=== PATIENT | female | born 1930 | race Hispanic/Latino ===

== ENCOUNTER 2016-12-14 08:19 | Observation (INO) | payer MEDICARE, OTHER ==
[2016-12-14 08:22] VITALS: BMI 35.2
--- NOTE | 2016-12-14 08:28 | ED PDOC ---
HPI: General Adult Time Seen by Provider: 12/14/16 08:24 Chief Complaint (Provider): chest pain History Per: Patient History/Exam Limitations: no limitations Additional Complaint(s): 86yo female w/ Hx coronary stents 5 years ago brought in by EMS for complaint of chest heaviness for several days. States yesterday she went food shopping and was short of breath by the end of experience. States she woke up with left shoulder, left arm pain. Patient took an aspirin yesterday. No pain when taking deep breaths. PMD: [facility] Cardiology: [facility] Past Medical History Reviewed: Historical Data, Nursing Documentation, Vital Signs Vital Signs: Last Vital Signs Temp 98 F 12/14/16 08:22 Pulse 66 12/14/16 08:22 Resp 20 12/14/16 08:22 BP 121/52 L 12/14/16 08:22 Pulse Ox 98 12/14/16 08:33 - Medical History PMH: Arthritis, CAD, HTN, Hypercholesterolemia Denies: HIV, Chronic Kidney Disease - Surgical History Surgical History: Coronary Stent (x3) Other surgeries: rotator cuff repair - Family History Family History: States: Unknown Family Hx - Social History Drugs: Denies - Home Medications Home Medications: Ambulatory Orders Medication Instructions Recorded [id number] Ethyl Esters 1 GM 1 gm PO BID #0 sgl 10/21/15 [Lovaza] Valsartan [Diovan] 160 mg PO DAILY #0 tab 10/21/15 hydroCHLOROthiazide [Microzide] 12.5 mg PO DAILY #0 cap 10/21/15 Aspirin [Ecotrin] 81 mg PO DAILY 11/21/15 Calcium Carbonate/Vitamin D3 1 tab PO DAILY 11/21/15 [Calcium 600-Vit D3 200 Tablet] Fenofibrate,Micronized [Lofibra] 134 mg PO HS 11/21/15 Folic Acid 1 mg PO DAILY 11/21/15 Krill Oil 1 cap PO DAILY 11/21/15 Magnesium Oxide [Mag-Ox] 1 tab PO DAILY 11/21/15 Metoprolol Succinate [Toprol XL] 25 mg PO HS 11/21/15 Multivitamin [Multi-Vitamin Daily] 1 tab PO DAILY 11/21/15 Ranitidine HCl [Zantac] 150 mg PO BID 11/21/15 Red Yeast Rice 1 cap PO DAILY 11/21/15 Thiamine [Vitamin B1 Tab] 100 mg PO DAILY 11/21/15 Ubidecarenone [Coenzyme Q10] 1 cap PO DAILY 11/21/15 amLODIPine [Norvasc] 10 mg PO DAILY 11/21/15 Ciprofloxacin [Cipro] 500 mg PO BID #0 tab 11/22/15 - Allergies Allergies/Adverse Reactions: Allergies Allergy/AdvReac Type Severity Reaction Status Date / Time clopidogrel [From Plavix] Allergy SHORTNESS Verified 12/14/16 08:29 OF BREATH Review of Systems ROS Statement: Except As Marked, All Systems Reviewed And Found Negative Cardiovascular: Positive for: Chest Pain Respiratory: Positive for: Shortness of Breath Musculoskeletal: Positive for: Arm Pain Physical Exam - Reviewed Nursing Documentation Reviewed: Yes Vital Signs Reviewed: Yes - Physical Exam Appears: Positive for: Well, Non-toxic, No Acute Distress Head Exam: Positive for: ATRAUMATIC, NORMAL INSPECTION, NORMOCEPHALIC Skin: Positive for: Warm, Dry Eye Exam: Positive for: EOMI, PERRL Cardiovascular/Chest: Positive for: Regular Rate, Rhythm Respiratory: Positive for: Normal Breath Sounds. Negative for: Rales, Rhonchi, Wheezing Gastrointestinal/Abdominal: Positive for: Normal Exam, Soft. Negative for: Tenderness Extremity: Positive for: Normal ROM Neurologic/Psych: Positive for: Alert, Oriented - Laboratory Results Result Diagrams: 12/14/16 09:10 12/14/16 09:10 - ECG O2 Sat by Pulse Oximetry: 98 (RA) Pulse Ox Interpretation: Normal Medical Decision Making Medical Decision Makin Impression chest pain Plan: EKG CXR Labs aspirin 325mg reassess Disposition - Clinical Impression Clinical Impression: Chest pain - Patient ED Disposition Is Patient to be Admitted: Yes - Disposition Disposition Time: 10:01 Condition: FAIR - Pt Status Changed To: Hospital Disposition Of: Observation - POA Present On Arrival: None Additional Comments - Additional Comments Additional Comments: Scribe Attestation Documented by Satya Zhang acting as a scribe for Kvng Ivory MD. Provider Attestation All medical record entries made by the Scribe were at my direction and personally dictated by me. I have reviewed the chart and agree that the record accurately reflects my personal performance of the history, physical exam, medical decision making, and the department course for this patient. I have also personally directed, reviewed, and agree with the discharge instructions and disposition
[2016-12-14 09:28] LABS: BASO % 0.5 % (0.0-2.0); EOS # 0.1 K/uL (0.0-0.7); EOS % 1.6 % (0.0-4.0); HEMATOCRIT 37.9 % (34.0-47.0); LYMPH # 1.4 K/uL (1.0-4.3); LYMPH % 16.1 % (20.0-40.0); MEAN CELL VOLUME 95.6 fl (81.0-99.0); MEAN CORPUSCULAR HEMOGLOBIN 32.4 pg (27.0-31.0); MEAN CORPUSCULAR HGB CONC 33.9 g/dL (33.0-37.0); MEAN PLATELET VOLUME 9.8 fl (7.2-11.7); MONO # 0.7 K/uL (0.0-0.8); MONO % 7.7 % (0.0-10.0); NEUT # 6.6 K/uL (1.8-7.0); NEUT % 74.1 % (50.0-75.0); RED CELL DISTRIBUTION WIDTH 13.6 % (11.5-14.5); WHITE BLOOD COUNT 8.9 K/uL (4.8-10.8)
[2016-12-14 09:42] LABS: ALB/GLOB RATIO 1.4 (1.0-2.1); ALKALINE PHOSPHATASE 41 U/L (38-126); ALT/SGPT 36 U/L (9-52); AST/SGOT 23 U/L (14-36); BILIRUBIN,TOTAL 0.4 mg/dl (0.2-1.3); BLOOD UREA NITROGEN 30 mg/dl (7-17); CALCIUM 9.3 mg/dL (8.4-10.2); CARBON DIOXIDE 27 mmol/L (22-30); CHLORIDE 103 mmol/L (98-107); GFR AFRICAN-AMERICAN 52; GLUCOSE,RANDOM 98 mg/dL (65-105); POTASSIUM 4.3 MMOL/L (3.6-5.0); SODIUM 140 mmol/l (132-148); TOTAL PROTEIN 7.5 G/DL (6.3-8.2)
--- NOTE | 2016-12-14 13:55 | CP.PCM.CON ---
History of Present Illness - History of Present Illness History of Present Illness: Full Note Dictated. Atypical chest pain ( doubt Angina) Stable CAD (S/P Cor stenting) A Fib (chr) HTN/ Obesity CA Breast in remission Pt to be monitored in the hospital Serial Troponin levels to be followed Past Patient History - Infectious Disease Hx of Infectious Diseases: None - Tetanus Immunizations Tetanus Immunization: Unknown - Past Medical History & Family History Past Medical History?: Yes - Past Social History Drugs: Denies - CARDIAC Hx Hypercholesterolemia: Yes Hx Hypertension: Yes - PULMONARY Hx Respiratory Disorders: No - NEUROLOGICAL Hx Neurological Disorder: No - HEENT Hx HEENT Problems: No - RENAL Hx Chronic Kidney Disease: No - ENDOCRINE/METABOLIC Hx Endocrine Disorders: No - HEMATOLOGICAL/ONCOLOGICAL Hx Human Immunodeficiency Virus (HIV): No - INTEGUMENTARY Hx Dermatological Problems: No - MUSCULOSKELETAL/RHEUMATOLOGICAL Hx Arthritis: Yes - GASTROINTESTINAL Hx Gastrointestinal Disorders: No - GENITOURINARY/GYNECOLOGICAL Hx Genitourinary Disorders: Yes Hx Urinary Tract Infection: Yes - PSYCHIATRIC Hx Substance Use: No - SURGICAL HISTORY Hx Coronary Stent: Yes (x3) - ANESTHESIA Hx Anesthesia: Yes Hx Anesthesia Reactions: No Hx Malignant Hyperthermia: No Meds Allergies/Adverse Reactions: Allergies Allergy/AdvReac Type Severity Reaction Status Date / Time clopidogrel [From Plavix] Allergy SHORTNESS Verified 12/14/16 08:29 OF BREATH Results - Vital Signs Recent Vital Signs: Last Vital Signs Temp 98 F 12/14/16 08:22 Pulse 66 12/14/16 08:22 Resp 20 12/14/16 08:22 BP 121/52 L 12/14/16 08:22 Pulse Ox 98 12/14/16 10:01 - Labs Result Diagrams: 12/14/16 09:10 12/14/16 09:10
--- NOTE | 2016-12-14 14:10 | CP.PCM.HP ---
History of Present Illness - History of Present Illness History of Present Illness: Patient 86 y/o female presented in ER with c/o of CP with irradiation to the lt upper limb. The CP occurred on exertion. Patient with hx of A Fib and CAD. Present on Admission - Present on Admission Any Indicators Present on Admission: No Review of Systems - Constitutional Constitutional: As Per HPI - EENT Eyes: As Per HPI - Cardiovascular Cardiovascular: Chest Pain, Chest Pain with Activity - Respiratory Respiratory: As Per HPI - Gastrointestinal Gastrointestinal: As Per HPI - Musculoskeletal Musculoskeletal: As Per HPI - Integumentary Integumentary: As Per HPI - Neurological Neurological: As Per HPI - Psychiatric Psychiatric: As Per HPI Past Patient History - Infectious Disease Hx of Infectious Diseases: None - Tetanus Immunizations Tetanus Immunization: Unknown - Past Medical History & Family History Past Medical History?: Yes - Past Social History Drugs: Denies - CARDIAC Hx Hypercholesterolemia: Yes Hx Hypertension: Yes - PULMONARY Hx Respiratory Disorders: No - NEUROLOGICAL Hx Neurological Disorder: No - HEENT Hx HEENT Problems: No - RENAL Hx Chronic Kidney Disease: No - ENDOCRINE/METABOLIC Hx Endocrine Disorders: No - HEMATOLOGICAL/ONCOLOGICAL Hx Human Immunodeficiency Virus (HIV): No - INTEGUMENTARY Hx Dermatological Problems: No - MUSCULOSKELETAL/RHEUMATOLOGICAL Hx Arthritis: Yes - GASTROINTESTINAL Hx Gastrointestinal Disorders: No - GENITOURINARY/GYNECOLOGICAL Hx Genitourinary Disorders: Yes Hx Urinary Tract Infection: Yes - PSYCHIATRIC Hx Substance Use: No - SURGICAL HISTORY Hx Coronary Stent: Yes (x3) - ANESTHESIA Hx Anesthesia: Yes Hx Anesthesia Reactions: No Hx Malignant Hyperthermia: No Meds Allergies/Adverse Reactions: Allergies Allergy/AdvReac Type Severity Reaction Status Date / Time clopidogrel [From Plavix] Allergy SHORTNESS Verified 12/14/16 08:29 OF BREATH Physical Exam - Constitutional Appears: Non-toxic - Head Exam Head Exam: ATRAUMATIC, NORMAL INSPECTION, NORMOCEPHALIC - Eye Exam Eye Exam: EOMI, Normal appearance, PERRL Pupil Exam: NORMAL ACCOMODATION, PERRL - ENT Exam ENT Exam: Mucous Membranes Moist - Neck Exam Neck exam: Positive for: Normal Inspection - Respiratory Exam Respiratory Exam: Decreased Breath Sounds, Clear to Auscultation Bilateral - Cardiovascular Exam Cardiovascular Exam: Irregular Rhythm, +S1, +S2 - GI/Abdominal Exam GI & Abdominal Exam: Normal Bowel Sounds - Rectal Exam Rectal Exam: Deferred - Neurological Exam Neurological exam: Alert, CN II-XII Intact, Oriented x3 Results - Vital Signs Recent Vital Signs: Last Vital Signs Temp 98 F 12/14/16 08:22 Pulse 66 12/14/16 08:22 Resp 20 12/14/16 08:22 BP 121/52 L 12/14/16 08:22 Pulse Ox 98 12/14/16 10:01 - Labs Result Diagrams: 12/14/16 09:10 12/14/16 09:10 Assessment & Plan (1) Atrial fibrillation Status: Chronic (2) Chest pain Status: Acute (3) Coronary artery disease Status: Chronic - Assessment and Plan (Free Text) Plan: As per orders.
[2016-12-14] MEDS ORDERED: Patient's Own Med (Ubidecarenone [Coenzyme Q-10] 200 mg) PO SCH (14:15)
[2016-12-14] MEDS ORDERED: RED YEAST RICE PO SCH (14:15)
[2016-12-14] MEDS ORDERED: MAGNESIUM OXIDE 250 MG PO SCH (14:15)
[2016-12-14] MEDS ORDERED: BIOTIN PO SCH (14:15)
--- NOTE | 2016-12-14 14:40 | CON ---
DATE: 12/14/2016 She is hospitalized under Dr. Bunch's care. HISTORY OF PRESENT ILLNESS: This 86-year-old female who had required coronary stenting for coronary artery disease in 03/2012, has developed atrial fibrillation last year and has been on a beta celeste for rate control and chronically anticoagulated. The patient also had significant pedal edema and h as been taking a diuretic as well. She has a history of breast malignancy and there has been no recu rrence. She has never been a smoker and has never suffered a myocardial infarction. The patient now comes into the hospital complaining of a vague sense of chest discomfort off and on, quite unconnect ed to any physical activity. There is no history of palpitations or sudden shortness of breath or pe rspiration, nausea or vomiting. The patient at this juncture is quite free of chest discomfort. She does not have any nitroglycerin and has not taken one. PHYSICAL EXAMINATION: GENERAL: Shows an elderly, anxious lady, comfortable at this point; alert, awake, coherent. VITAL SIGNS: Afebrile, able to lie virtually flat in bed and breathe comfortably at 14-16 breaths pe r minute. Has a heart rate of 68 beats per minute regular, and a blood pressure of 136/84 mmHg. NECK: Her jugular venous pressure was not elevated. EXTREMITIES: There was no edema of lower extremity. The pedal pulses are well felt. There were no carotid bruits. Thyroid did not show any enlargement. HEART: The apex was not palpable. The first and second heart sounds were normal. There was no murm ur or gallop. LUNGS: There were no rales. ABDOMEN: Soft. Liver and spleen were not palpable. Her electrocardiogram showed atrial fibrillation at moderate heart rate with no Q-waves suggestive of an old infarction. LABORATORY DATA: Showed a hemoglobin and a hematocrit of 12.9 g and 37.9% respectively. Her WBC cou nt and platelet counts were within normal limits. Her BUN and creatinine were 30 and 1.2 mg%. Her t roponin levels at admission were within normal limits. IMPRESSION: At this time is chest pain, atypical in nature, in a patient with known coronary artery disease, status post coronary stenting in 03/2012, with atrial fibrillation, no evidence of overt con gestive cardiac failure, with status post surgery for breast malignancy. PLAN: The patient will have a followup troponin drawn. If it is within normal limits, the patient m ay be allowed to return home. In the meantime, she appears chest pain free and hemodynamically stabl e at this juncture. Mu Dixon MD cc: 23 TT: 12/14/2016 14:40:20 Confirmation # [id number] Dictation # [id number] mn
--- NOTE | 2016-12-14 15:36 | RAD ---
HISTORY: Palpitations, chest pain COMPARISON: 11/21/2015. TECHNIQUE: Chest PA and lateral FINDINGS: LUNGS: Hyperinflation, manifestations of COPD. No active pulmonary disease. PLEURA: No significant pleural effusion identified. No pneumothorax apparent. CARDIOVASCULAR: No radiographic findings to suggest acute or significant cardiovascular disease. OSSEOUS STRUCTURES: No significant abnormalities. VISUALIZED UPPER ABDOMEN: Normal. OTHER FINDINGS: None. IMPRESSION: No active disease. No significant interval change compared to the prior examination(s).
--- NOTE | 2016-12-14 16:04 | CARD ---
APPROVED REPORT EKG Measurement Heart [id number] <Conclusion> Atrial fibrillation Abnormal ECG
[2016-12-14 17:43] LABS: THYROID STIMULATING HORMONE 1.92 mIU/ML (0.46-4.68)
[2016-12-14] MEDS: Lactobacillus Acidophilus 500 MU Cap PO SCH (19:12)
[2016-12-14] MEDS: Multivitamin With Minerals Tab PO SCH (19:14)
[2016-12-14] MEDS: Calcium-Vit D 500 mg-200 Units Tab UD PO SCH (19:14)
[2016-12-15 04:50] VITALS: RESP 18; O2SAT 96
--- NOTE | 2016-12-15 09:41 | CP.PCM.PN ---
Subjective - Date & Time of Evaluation Date of Evaluation: 12/15/16 Time of Evaluation: 09:15 - Subjective Subjective: Has been symptom free over last 24 hrs Telemetry shoes A Fib with well controlled HR BP 128/70 mm Hg No rales, no gallop Three sets of Troponins were normal No evidence of ACS May go home on present Rx Objective - Vital Signs/Intake and Output Vital Signs (last 24 hours): Temp Pulse Resp BP Pulse Ox 97.8 F 71 18 125/71 96 12/15/16 07:49 12/15/16 07:49 12/15/16 07:49 12/15/16 07:49 12/15/16 07:49 - Medications Medications: Current Medications Amlodipine Besylate (Norvasc) 10 mg PO DAILY [facility] Last Admin: 12/14/16 17:56 Dose: 10 mg Ascorbic Acid (Vitamin C 500 Mg Tab) 500 mg PO DAILY [facility] Last Admin: 12/14/16 19:15 Dose: 500 mg Calcium/Vitamin D (Oyster Shell Calcium/Vitamin D 500 Mg-200 Iu) 1 tab PO DAILY [facility] Last Admin: 12/14/16 19:14 Dose: 1 tab Folic Acid (Folic Acid) 1 mg PO DAILY [facility] Last Admin: 12/14/16 19:13 Dose: 1 mg Furosemide (Lasix) 40 mg PO DAILY [facility] Last Admin: 12/14/16 19:13 Dose: 40 mg Home Med (Acetaminophen [Tylenol Extra Strength]) 1,000 mg PO DAILY [facility] Home Med (Magnesium Oxide [Magnesium]) 250 mg PO DAILY [facility] Hydrochlorothiazide (Microzide) 12.5 mg PO DAILY [facility] Last Admin: 12/14/16 19:14 Dose: 12.5 mg Lactobacillus Acidophilus (Bacid Acidophilus) 1 cap PO DAILY [facility] Last Admin: 12/14/16 19:12 Dose: 1 cap Metoprolol Tartrate (Lopressor) 25 mg PO QAM ANUEL Metoprolol Tartrate (Lopressor) 50 mg PO HS [facility] Last Admin: 12/14/16 21:29 Dose: 50 mg Multivitamins/Minerals (Therapeutic-M Tab) 1 tab PO DAILY [facility] Last Admin: 12/14/16 19:14 Dose: 1 tab Prednisone (Prednisone Tab) 5 mg PO DAILY [facility] Last Admin: 12/14/16 17:54 Dose: 5 mg Rivaroxaban (Xarelto) 20 mg PO QPM [facility] PRN Reason: Protocol Last Admin: 12/14/16 19:15 Dose: 20 mg Thiamine HCl (Vitamin B1 Tab) 100 mg PO DAILY [facility] Last Admin: 12/14/16 19:15 Dose: 100 mg Valsartan (Diovan) 160 mg PO DAILY [facility] Last Admin: 12/14/16 19:12 Dose: 160 mg
[2016-12-15] MEDS: Lactobacillus Acidophilus 500 MU Cap PO SCH (09:42)
[2016-12-15] MEDS: Calcium-Vit D 500 mg-200 Units Tab UD PO SCH (09:44)
[2016-12-15] MEDS: Multivitamin With Minerals Tab PO SCH (09:45)
--- NOTE | 2016-12-15 11:50 | CP.PCM.PN ---
Subjective - Date & Time of Evaluation Date of Evaluation: 12/15/16 Time of Evaluation: 11:50 - Subjective Subjective: Comfortable, no CP ,no SOB, no palpitations Objective - Vital Signs/Intake and Output Vital Signs (last 24 hours): Temp Pulse Resp BP Pulse Ox 97.8 F 71 18 125/71 96 12/15/16 09:00 12/15/16 09:44 12/15/16 09:00 12/15/16 09:44 12/15/16 09:00 - Medications Medications: Current Medications Amlodipine Besylate (Norvasc) 10 mg PO DAILY [facility] Last Admin: 12/15/16 09:44 Dose: 10 mg Ascorbic Acid (Vitamin C 500 Mg Tab) 500 mg PO DAILY [facility] Last Admin: 12/15/16 09:45 Dose: 500 mg Calcium/Vitamin D (Oyster Shell Calcium/Vitamin D 500 Mg-200 Iu) 1 tab PO DAILY [facility] Last Admin: 12/15/16 09:44 Dose: 1 tab Folic Acid (Folic Acid) 1 mg PO DAILY [facility] Last Admin: 12/15/16 09:42 Dose: 1 mg Furosemide (Lasix) 40 mg PO DAILY [facility] Last Admin: 12/15/16 09:42 Dose: 40 mg Home Med (Acetaminophen [Tylenol Extra Strength]) 1,000 mg PO DAILY [facility] Home Med (Magnesium Oxide [Magnesium]) 250 mg PO DAILY [facility] Hydrochlorothiazide (Microzide) 12.5 mg PO DAILY [facility] Last Admin: 12/15/16 09:44 Dose: 12.5 mg Lactobacillus Acidophilus (Bacid Acidophilus) 1 cap PO DAILY [facility] Last Admin: 12/15/16 09:42 Dose: 1 cap Metoprolol Tartrate (Lopressor) 25 mg PO QAM [facility] Last Admin: 12/15/16 09:43 Dose: 25 mg Metoprolol Tartrate (Lopressor) 50 mg PO HS [facility] Last Admin: 12/14/16 21:29 Dose: 50 mg Multivitamins/Minerals (Therapeutic-M Tab) 1 tab PO DAILY [facility] Last Admin: 12/15/16 09:45 Dose: 1 tab Prednisone (Prednisone Tab) 5 mg PO DAILY [facility] Last Admin: 12/15/16 09:45 Dose: 5 mg Rivaroxaban (Xarelto) 20 mg PO QPM [facility] PRN Reason: Protocol Last Admin: 12/14/16 19:15 Dose: 20 mg Thiamine HCl (Vitamin B1 Tab) 100 mg PO DAILY [facility] Last Admin: 12/15/16 09:45 Dose: 100 mg Valsartan (Diovan) 160 mg PO DAILY [facility] Last Admin: 12/15/16 09:42 Dose: 160 mg - Constitutional Appears: Well - Head Exam Head Exam: ATRAUMATIC, NORMAL INSPECTION, NORMOCEPHALIC - Eye Exam Eye Exam: EOMI, Normal appearance, PERRL Pupil Exam: NORMAL ACCOMODATION - ENT Exam ENT Exam: Mucous Membranes Moist - Neck Exam Neck Exam: Full ROM - Respiratory Exam Respiratory Exam: Clear to Ausculation Bilateral - Cardiovascular Exam Cardiovascular Exam: Irregular Rhythm, +S1, +S2 - GI/Abdominal Exam GI & Abdominal Exam: Soft, Normal Bowel Sounds - Neurological Exam Neurological Exam: Alert, Awake, CN II-XII Intact, Normal Gait, Oriented x3 - Skin Skin Exam: Normal Color Assessment and Plan (1) Atrial fibrillation Status: Chronic (2) Chest pain Status: Resolved (3) Coronary artery disease Status: Chronic - Assessment and Plan (Free Text) Plan: DC home
[2016-12-15 12:04] VITALS: BP 118/67; PULSE 82; TEMP 97.7
== END 2016-12-15 13:38 | disposition home or self-care (01) ==
LOC: H.ER 08:19 → H.ERHOLD 09:58 → H.TEL 18:14
PROVIDERS: ADMIT Internal Medicine; ATTEND Internal Medicine
DX: R07.89 Other chest pain (principal); I48.2 Chronic atrial fibrillation; I10 Essential (primary) hypertension; I25.10 Atherosclerotic heart disease of native coronary artery without angina pectoris; Z95.5 Presence of coronary angioplasty implant and graft; E78.00 Pure hypercholesterolemia, unspecified; E66.9 Obesity, unspecified; Z79.01 Long term (current) use of anticoagulants; Z85.3 Personal history of malignant neoplasm of breast
CPT/HCPCS: 71020; 80053; 84443; 84484; 85025; 93005; 99285; G0378

== ENCOUNTER 2017-02-21 09:01 | Emergency (ER) | payer MEDICARE, OTHER ==
[2017-02-21 09:01] VITALS: BMI 35.2
[2017-02-21 09:22] VITALS: O2SAT 98
--- NOTE | 2017-02-21 09:43 | ED PDOC ---
HPI: General Adult Time Seen by Provider: 02/21/17 09:23 Chief Complaint (Nursing): Weakness/Neurological Deficit Chief Complaint (Provider): Tingling to right side of head History Per: Patient History/Exam Limitations: no limitations Onset/Duration Of Symptoms: Days Have you had recent travel within the past 21 days to any of the following countries: [place], [place], [place] or [place]?: No Additional History Per: Patient Additional Complaint(s): The patient is a 86yo female, presents to the ED for evaluation of tingling to her left side of head, present for the past week. Patient additionally reports swollen ankles. She denies any shortness of breath, headaches, weakness. Patient offers no additional medical complaints. Past Medical History Reviewed: Historical Data, Nursing Documentation, Vital Signs Vital Signs: Last Vital Signs Temp Pulse Resp BP Pulse Ox 98 02/21/17 10:44 - Medical History PMH: Arthritis, Atrial Fibrillation, CAD (with stents), HTN, Hypercholesterolemia, Chronic Kidney Disease Denies: HIV - Surgical History Surgical History: Coronary Stent (x3) - Family History Family History: States: Unknown Family Hx - Home Medications Home Medications: Ambulatory Orders Medication Instructions Recorded Calcium Carbonate/Vitamin D3 1 tab PO DAILY 11/21/15 [Calcium 600-Vit D3 200 Tablet] Folic Acid 1 mg PO DAILY 11/21/15 Multivitamin [Multi-Vitamin Daily] 1 tab PO DAILY 11/21/15 Ranitidine HCl [Zantac] 150 mg PO BID 11/21/15 Red Yeast Rice 1 cap PO DAILY 11/21/15 Thiamine [Vitamin B1 Tab] 100 mg PO DAILY 11/21/15 Acetaminophen [Tylenol Extra 1,000 mg PO DAILY 12/14/16 Strength] Ascorbic Acid [Vitamin C 500 mg 500 mg PO DAILY 12/14/16 Tab] Biotin [Meribin] 1 cap PO DAILY 12/14/16 Furosemide [Lasix] 40 mg PO DAILY 12/14/16 Lactobacillus Combination No.8 1 cap PO DAILY 12/14/16 [Adult Probiotic] Magnesium Oxide [Magnesium] 250 mg PO DAILY 12/14/16 Metoprolol Tartrate [Lopressor] 25 mg PO QAM 12/14/16 Metoprolol Tartrate [Lopressor] 50 mg PO HS 12/14/16 Rivaroxaban [Xarelto] 20 mg PO QPM 12/14/16 Ubidecarenone [Coenzyme Q-10] 200 mg PO DAILY 12/14/16 Valsartan [Diovan] 160 mg PO DAILY 12/14/16 amLODIPine [Norvasc] 10 mg PO DAILY 12/14/16 hydroCHLOROthiazide [Microzide] 12.5 mg PO DAILY 12/14/16 predniSONE [predniSONE Tab] 5 mg PO DAILY 12/14/16 Furosemide [Lasix] 20 mg PO DAILY #3 tablet 02/21/17 - Allergies Allergies/Adverse Reactions: Allergies Allergy/AdvReac Type Severity Reaction Status Date / Time clopidogrel [From Plavix] Allergy SHORTNESS Verified 02/21/17 09:19 OF BREATH Review of Systems ROS Statement: Except As Marked, All Systems Reviewed And Found Negative Respiratory: Negative for: Shortness of Breath Neurological: Positive for: Other (tingling left head). Negative for: Weakness , Headache Physical Exam - Reviewed Nursing Documentation Reviewed: Yes Vital Signs Reviewed: Yes - Physical Exam Appears: Positive for: Well, Non-toxic, No Acute Distress Head Exam: Positive for: ATRAUMATIC, NORMAL INSPECTION, NORMOCEPHALIC Skin: Positive for: Normal Color, Warm, DRY Eye Exam: Positive for: Normal appearance Neck: Positive for: Normal, Supple Cardiovascular/Chest: Positive for: Regular Rate, Rhythm Respiratory: Positive for: Normal Breath Sounds. Negative for: Respiratory Distress Extremity: Positive for: Normal ROM Neurologic/Psych: Positive for: Alert, Oriented. Negative for: Motor/Sensory Deficits - Laboratory Results Result Diagrams: 02/21/17 09:30 02/21/17 09:30 - ECG O2 Sat by Pulse Oximetry: 98 (RA) Pulse Ox Interpretation: Normal Medical Decision Making Medical Decision Making: Time: 929 Impression: Left sided head tingling Plan: -- CT Head -- Labs -- CXR Reassess Time: 1040 CT Head Impression: No evidence of acute intracranial hemorrhage, intracranial collection, mass effect or midline shift. [id number] atrophy and mild chronic microvascular white matter ischemic disease. Scribe Attestation: Documented by Tanisha Alexandra acting as a scribe for Kvng Ivory MD. Provider Attestation: All medical record entries made by the Scribe were at my direction and personally dictated by me. I have reviewed the chart and agree that the record accurately reflects my personal performance of the history, physical exam, medical decision making, and the department course for this patient. I have also personally directed, reviewed, and agree with the discharge instructions and disposition. Disposition - Clinical Impression Clinical Impression: Edema - Patient ED Disposition Is Patient to be Admitted: No Counseled Patient/Family Regarding: Studies Performed, Diagnosis, Need For Followup, Rx Given - Disposition Referrals: Mu Dixon MD [Staff Provider] - Jame Bunch MD [Staff Provider] - Disposition: Routine/Home Disposition Time: 10:50 Condition: FAIR Prescriptions: Furosemide [Lasix] 20 mg PO DAILY #3 tablet Instructions: Leg Edema (ED) Forms: [employer] ([place])
[2017-02-21 09:50] LABS: BASO # 0.1 K/uL (0.0-0.2); BASO % 0.8 % (0.0-2.0); EOS # 0.1 K/uL (0.0-0.7); EOS % 1.1 % (0.0-4.0); HEMOGLOBIN 13.4 g/dL (12.0-16.0); LYMPH # 1.6 K/uL (1.0-4.3); LYMPH % 15.3 % (20.0-40.0); MEAN CELL VOLUME 95.9 fl (81.0-99.0); MEAN CORPUSCULAR HEMOGLOBIN 32.2 pg (27.0-31.0); MEAN CORPUSCULAR HGB CONC 33.6 g/dL (33.0-37.0); MEAN PLATELET VOLUME 9.8 fl (7.2-11.7); MONO # 0.7 K/uL (0.0-0.8); MONO % 6.9 % (0.0-10.0); NEUT # 8.1 K/uL (1.8-7.0); NEUT % 75.9 % (50.0-75.0); RBC 4.16 Mil/uL (3.80-5.20); RED CELL DISTRIBUTION WIDTH 13.9 % (11.5-14.5); WHITE BLOOD COUNT 10.7 K/uL (4.8-10.8)
[2017-02-21 09:57] LABS: ALB/GLOB RATIO 1.4 (1.0-2.1); ALBUMIN 4.3 g/dL (3.5-5.0); CALCIUM 9.7 mg/dL (8.4-10.2)
--- NOTE | 2017-02-21 10:33 | CT ---
PROCEDURE: CT HEAD WITHOUT CONTRAST. HISTORY: r/o bleed COMPARISON: Comparison is made to the previous study dated 04/22/2012 TECHNIQUE: Axial computed tomography images were obtained through the head/brain without intravenous contrast. Radiation dose: Total exam DLP = 876.96 mGy-cm. This CT exam was performed using one or more of the following dose reduction techniques: Automated exposure control, adjustment of the mA and/or kV according to patient size, and/or use of iterative reconstruction technique. FINDINGS: HEMORRHAGE: No intracranial hemorrhage. BRAIN: No mass effect or edema. [id number] atrophy is noted. Mild white matter changes are also noted suggestive but nonspecific for chronic microvascular ischemic disease. Vascular calcifications seen around the [place] and in the distal internal carotid and vertebral arteries. Siphon VENTRICLES: Unremarkable. No hydrocephalus. CALVARIUM: Unremarkable. PARANASAL SINUSES: Unremarkable as visualized. No significant inflammatory changes. MASTOID AIR CELLS: Unremarkable as visualized. No inflammatory changes. OTHER FINDINGS: None. IMPRESSION: No evidence of acute intracranial hemorrhage intracranial collection mass effect or midline shift. [id number] atrophy and mild chronic microvascular white matter ischemic disease.
--- NOTE | 2017-02-21 11:46 | RAD ---
HISTORY: Ankle swellingt COMPARISON: 12/14/2016 TECHNIQUE: Chest PA and lateral FINDINGS: LUNGS: Hyperinflation, manifestations of COPD. No active pulmonary disease. PLEURA: No significant pleural effusion identified. No pneumothorax apparent. CARDIOVASCULAR: Cardiomegaly. No evidence of acute, significant cardiovascular disease. OSSEOUS STRUCTURES: No significant abnormalities. VISUALIZED UPPER ABDOMEN: Normal. OTHER FINDINGS: None. IMPRESSION: No active disease. No significant interval change compared to the prior examination(s).
--- NOTE | 2017-02-22 08:09 | CARD ---
APPROVED REPORT EKG Measurement Heart [id number] <Conclusion> Atrial fibrillation with a competing junctional pacemaker Abnormal ECG
== END 2017-02-21 11:09 | disposition home or self-care (01) ==
LOC: H.ER 09:01
DX: R53.1 Weakness (principal); R20.2 Paresthesia of skin; E78.00 Pure hypercholesterolemia, unspecified; I12.9 Hypertensive chronic kidney disease with stage 1 through stage 4 chronic kidney disease, or unspecified chronic kidney disease; I25.10 Atherosclerotic heart disease of native coronary artery without angina pectoris; I48.91 Unspecified atrial fibrillation; Z79.01 Long term (current) use of anticoagulants; Z95.0 Presence of cardiac pacemaker; Z95.5 Presence of coronary angioplasty implant and graft

== ENCOUNTER 2017-08-16 10:44 | Emergency (ER) | payer MEDICARE ==
[2017-08-16 10:44] VITALS: BMI 35.2
[2017-08-16 10:48] VITALS: BP 135/78; PULSE 98; RESP 20; TEMP 97.9; O2SAT 97
--- NOTE | 2017-08-16 11:33 | ED PDOC ---
HPI: General Adult Time Seen by Provider: 08/16/17 11:01 Chief Complaint (Nursing): Flu-like Symptoms Chief Complaint (Provider): Cough History Per: Patient History/Exam Limitations: no limitations Onset/Duration Of Symptoms: Days (yesterday) Current Symptoms Are (Timing): Still Present Additional Complaint(s): Pt. with cough, congestion, runny onse, body aches, weakness. No headaches, dizziness, chest pain, dyspnea, leg pain, numbness, tingles. No abd pain. Started yesterday. Past Medical History Reviewed: Nursing Documentation, Vital Signs Vital Signs: Last Vital Signs Temp 97.9 F 08/16/17 10:47 Pulse 98 H 08/16/17 10:47 Resp 20 08/16/17 10:47 BP 135/78 08/16/17 10:47 Pulse Ox 97 08/16/17 14:05 - Medical History PMH: Arthritis, Atrial Fibrillation, CAD (with stents), HTN, Hypercholesterolemia, Chronic Kidney Disease Denies: HIV - Surgical History Surgical History: Coronary Stent (x3) - Family History Family History: States: Unknown Family Hx - Living Arrangements Living Arrangements: With Family - Social History Current smoker - smoking cessation education provided: No Alcohol: None Drugs: Denies - Home Medications Home Medications: Ambulatory Orders Medication Instructions Recorded Calcium Carbonate/Vitamin D3 1 tab PO DAILY 11/21/15 [Calcium 600-Vit D3 200 Tablet] Folic Acid 1 mg PO DAILY 11/21/15 Multivitamin [Multi-Vitamin Daily] 1 tab PO DAILY 11/21/15 Ranitidine HCl [Zantac] 150 mg PO BID 11/21/15 Red Yeast Rice 1 cap PO DAILY 11/21/15 Thiamine [Vitamin B1 Tab] 100 mg PO DAILY 11/21/15 Acetaminophen [Tylenol Extra 1,000 mg PO DAILY 12/14/16 Strength] Ascorbic Acid [Vitamin C 500 mg 500 mg PO DAILY 12/14/16 Tab] Biotin [Meribin] 1 cap PO DAILY 12/14/16 Furosemide [Lasix] 40 mg PO DAILY 12/14/16 Lactobacillus Combination No.8 1 cap PO DAILY 12/14/16 [Adult Probiotic] Magnesium Oxide [Magnesium] 250 mg PO DAILY 12/14/16 Metoprolol Tartrate [Lopressor] 25 mg PO QAM 12/14/16 Metoprolol Tartrate [Lopressor] 50 mg PO HS 12/14/16 Rivaroxaban [Xarelto] 20 mg PO QPM 12/14/16 Ubidecarenone [Coenzyme Q-10] 200 mg PO DAILY 12/14/16 Valsartan [Diovan] 160 mg PO DAILY 12/14/16 amLODIPine [Norvasc] 10 mg PO DAILY 12/14/16 hydroCHLOROthiazide [Microzide] 12.5 mg PO DAILY 12/14/16 predniSONE [predniSONE Tab] 5 mg PO DAILY 12/14/16 Furosemide [Lasix] 20 mg PO DAILY #3 tablet 02/21/17 Azithromycin [Zithromax] 250 mg PO DAILY 5 Days tab 08/16/17 Benzonatate [Tessalon Perles] 100 mg PO BID PRN 5 Days sgl 08/16/17 - Allergies Allergies/Adverse Reactions: Allergies Allergy/AdvReac Type Severity Reaction Status Date / Time clopidogrel [From Plavix] Allergy SHORTNESS Verified 02/21/17 09:19 OF BREATH Review of Systems ROS Statement: Except As Marked, All Systems Reviewed And Found Negative Constitutional: Positive for: Weakness ENT: Positive for: Nose Discharge, Nose Congestion, Throat Pain Respiratory: Positive for: Cough. Negative for: Shortness of Breath Gastrointestinal: Negative for: Nausea, Vomiting, Abdominal Pain Neurological: Positive for: Weakness. Negative for: Confusion, Dizziness Physical Exam - Reviewed Nursing Documentation Reviewed: Yes Vital Signs Reviewed: Yes - Physical Exam Appears: Positive for: Non-toxic, No Acute Distress Head Exam: Positive for: ATRAUMATIC, NORMAL INSPECTION, NORMOCEPHALIC Skin: Positive for: Normal Color, Warm, DRY Eye Exam: Positive for: EOMI, Normal appearance, PERRL ENT: Positive for: Nasal Congestion. Negative for: Tonsillar Exudate Neck: Positive for: Normal, Painless ROM, Supple Cardiovascular/Chest: Positive for: Regular Rate, Rhythm Respiratory: Positive for: CNT, Normal Breath Sounds Gastrointestinal/Abdominal: Positive for: Normal Exam, Bowel Sounds, Soft. Negative for: Tenderness Back: Positive for: Normal Inspection. Negative for: L CVA Tenderness, R CVA Tenderness Extremity: Positive for: Normal ROM. 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 Negative for: Motor/Sensory Deficits - Laboratory Results Result Diagrams: 08/16/17 13:55 08/16/17 13:10 Interpretation Of Abn Labs: wbc c12; elevated bun - ECG ECG: Positive for: Interpreted By Me, Viewed By Me ECG Rhythm: Positive for: Atrial Fibrillation (rate controlled), Nonspecific Changes O2 Sat by Pulse Oximetry: 97 Pulse Ox Interpretation: Normal - Radiology X-Ray: Read By Radiologist X-Ray Interpretation: No Acute Disease - Progress ED Course And Treament: 1543: Stable. AAOx3. Feels better. Tolerated PO. No dyspnea. Flu neg. Wants to go home. Fu with pcp. Will rx zpak considering underlying dz. Spoke with Dr. Bunch. Made aware of all findings and presentation. Wants dc and fu with him. Agrees with dc plan. Disposition - Clinical Impression Clinical Impression: URI (upper respiratory infection) - Patient ED Disposition Is Patient to be Admitted: No Counseled Patient/Family Regarding: Studies Performed, Diagnosis, Need For Followup, Rx Given - Disposition Referrals: Jame Bunch MD [Family Provider] - 08/17/17 Disposition: Routine/Home Disposition Time: 14:47 Condition: STABLE Additional Instructions: Return if not better in 3 days. Prescriptions: Azithromycin [Zithromax] 250 mg PO DAILY 5 Days tab Benzonatate [Tessalon Perles] 100 mg PO BID PRN 5 Days sgl PRN Reason: Cough Instructions: Upper Respiratory Infection (ED)
[2017-08-16] MEDS: Sodium Chloride 0.9% 500 ML IV STA (11:56)
--- NOTE | 2017-08-16 12:43 | RAD ---
HISTORY: cough COMPARISON: 02/21/2017. FINDINGS: LUNGS: The lungs are well inflated and clear. PLEURA: No significant pleural effusion identified, no pneumothorax apparent. CARDIOVASCULAR: There is persistent moderate cardiomegaly. Atherosclerotic aortic arch calcifications are present. OSSEOUS STRUCTURES: No significant abnormalities. VISUALIZED UPPER ABDOMEN: Normal. OTHER FINDINGS: None. IMPRESSION: No active pulmonary disease.
[2017-08-16 13:31] LABS: ALB/GLOB RATIO 1.3 (1.0-2.1); ALBUMIN 4.2 g/dL (3.5-5.0); CALCIUM 9.5 mg/dL (8.4-10.2); GFR AFRICAN-AMERICAN 52; GFR NON-AFRICAN AMERICAN 43
[2017-08-16 13:43] LABS: ALT/SGPT 37 U/L (9-52); AST/SGOT 35 U/L (14-36); BLOOD UREA NITROGEN 25 mg/dl (7-17)
[2017-08-16 13:53] LABS: INR 1.1 (0.9-1.2); PARTIAL THROMBOPLASTIN TIME 16.6 Seconds (25.6-37.1); PROTHROMBIN TIME 12.7 Seconds (9.8-13.1)
[2017-08-16 14:04] LABS: BASO % 0.3 % (0.0-2.0); EOS # 0.1 K/uL (0.0-0.7); EOS % 0.5 % (0.0-4.0); HEMOGLOBIN 12.7 g/dL (12.0-16.0); LYMPH # 0.5 K/uL (1.0-4.3); LYMPH % 3.8 % (20.0-40.0); MEAN CELL VOLUME 96.8 fl (81.0-99.0); MEAN CORPUSCULAR HEMOGLOBIN 32.6 pg (27.0-31.0); MEAN CORPUSCULAR HGB CONC 33.7 g/dL (33.0-37.0); MEAN PLATELET VOLUME 9.4 fl (7.2-11.7); MONO # 0.8 K/uL (0.0-0.8); MONO % 6.9 % (0.0-10.0); NEUT # 10.7 K/uL (1.8-7.0); NEUT % 88.5 % (50.0-75.0); NRBC % 0.1 % (0.0-0.0); PLATELET COUNT 166 K/uL (130-400); RBC 3.89 Mil/uL (3.80-5.20); RED CELL DISTRIBUTION WIDTH 14.7 % (11.5-14.5)
[2017-08-16 14:38] LABS: BANDS 1 % (0-2); LYMPHOCYTE 4 % (20-50); MONOCYTE 6 % (0-10); NEUTROPHIL 89 % (42-75); TOTAL CELLS COUNTED 100
[2017-08-16 14:39] LABS: ANISOCYTOSIS SLIGHT; LARGE PLATELETS PRESENT; PLATELET ESTIMATE NORMAL (NORMAL)
--- NOTE | 2017-08-18 09:52 | CARD ---
APPROVED REPORT EKG Measurement Heart [id number] <Conclusion> Atrial fibrillation Nonspecific T wave abnormality Abnormal ECG
== END 2017-08-16 16:10 | disposition home or self-care (01) ==
LOC: H.ER 10:44
DX: J06.9 Acute upper respiratory infection, unspecified (principal); I25.10 Atherosclerotic heart disease of native coronary artery without angina pectoris; E78.00 Pure hypercholesterolemia, unspecified; I12.9 Hypertensive chronic kidney disease with stage 1 through stage 4 chronic kidney disease, or unspecified chronic kidney disease
CPT/HCPCS: 71045; 80053; 84484; 85025; 85610; 85730; 87804; 93005; 96360; 96361; 99284; J7040

== ENCOUNTER 2018-03-27 09:37 | Observation (INO) | payer MEDICARE, SELFPAY ==
[2018-03-27 09:37] VITALS: BMI 36.5
--- NOTE | 2018-03-27 10:49 | ED PDOC ---
HPI: SOB/CHF/COPD Time Seen by Provider: 03/27/18 09:58 Chief Complaint (Nursing): Shortness Of Breath Chief Complaint (Provider): Shortness of breath History Per: Patient History/Exam Limitations: no limitations Onset/Duration Of Symptoms: Persistent (2 months) Current Symptoms Are (Timing): Still Present Additional History Per: Patient Additional Complaint(s): 87yo female, comes to ER complaining of worsening shortness of breath x 2 months. She reports the shortness of breath worsens with exertion; also reports paroxsymal nocturnal dyspnea, orthopnea, and a dry cough. She denies any fever, chills, chest pain and new/worsening leg swelling. No other complaints. PMD: Dr. Bunch Past Medical History Reviewed: Historical Data, Nursing Documentation, Vital Signs Vital Signs: Last Vital Signs Temp 98.5 F 03/27/18 15:10 Pulse 85 03/27/18 15:10 Resp 16 03/27/18 15:10 BP 173/85 H 03/27/18 15:10 Pulse Ox 100 03/27/18 15:10 - Medical History PMH: Arthritis, Atrial Fibrillation, CAD (with stents), HTN, Hypercholesterolemia, Chronic Kidney Disease Denies: HIV - Surgical History Surgical History: Cholecystectomy, Coronary Stent (x3) Denies: Pacemaker - Family History Family History: States: No Known Family Hx - Living Arrangements Living Arrangements: With Family - Home Medications Home Medications: Ambulatory Orders Medication Instructions Recorded Calcium Carbonate/Vitamin D3 1 tab PO DAILY 11/21/15 [Calcium 600-Vit D3 200 Tablet] Multivitamin [Multi-Vitamin Daily] 1 tab PO DAILY 11/21/15 Acetaminophen [Tylenol Extra 500 mg PO DAILY PRN 12/14/16 Strength] Biotin [Meribin] 1 cap PO DAILY 12/14/16 Furosemide [Lasix] 40 mg PO DAILY 12/14/16 Lactobacillus Combination No.8 1 cap PO DAILY 12/14/16 [Adult Probiotic] Metoprolol Tartrate [Lopressor] 25 mg PO HS 12/14/16 Metoprolol Tartrate [Lopressor] 50 mg PO QAM 12/14/16 Rivaroxaban [Xarelto] 15 mg PO QPM 12/14/16 Ubidecarenone [Coenzyme Q-10] 200 mg PO DAILY 12/14/16 Valsartan [Diovan] 160 mg PO DAILY 12/14/16 predniSONE [predniSONE Tab] 5 mg PO DAILY 12/14/16 Alendronate [Fosamax] 70 mg PO TUE 10/06/17 Aspirin [Ecotrin] 81 mg PO DAILY 10/06/17 Celecoxib [Celebrex] 200 mg PO DAILY 10/06/17 Omeprazole 40 mg PO DAILY 10/06/17 - Allergies Allergies/Adverse Reactions: Allergies Allergy/AdvReac Type Severity Reaction Status Date / Time clopidogrel [From Plavix] Allergy Severe RASH/SHORTNESS Verified 03/27/18 10:03 OF BREATH Review of Systems ROS Statement: Except As Marked, All Systems Reviewed And Found Negative Constitutional: Negative for: Fever, Chills Cardiovascular: Positive for: Orthopnea, Paroxysmal Noc. Dyspnea. Negative for : Chest Pain Respiratory: Positive for: Shortness of Breath. Negative for: Cough, Sputum Physical Exam - Reviewed Nursing Documentation Reviewed: Yes Vital Signs Reviewed: Yes - Physical Exam Appears: Positive for: Non-toxic, Uncomfortable Head Exam: Positive for: ATRAUMATIC, NORMAL INSPECTION, NORMOCEPHALIC Skin: Positive for: Normal Color, Warm, DRY Eye Exam: Positive for: EOMI, Normal appearance, PERRL Neck: Positive for: Normal, Painless ROM Cardiovascular/Chest: Positive for: Chest Non Tender, Irregularly Irregular Respiratory: Positive for: Normal Breath Sounds, Other (speaking full sentences) . Negative for: Wheezing, Respiratory Distress Gastrointestinal/Abdominal: Positive for: Normal Exam, Soft Back: Positive for: Normal Inspection Extremity: Positive for: Normal ROM, Pedal Edema (2+ pitting edema bilateral lower extremities) Neurologic/Psych: Positive for: Alert, Oriented. Negative for: Motor/Sensory Deficits - Laboratory Results Result Diagrams: 03/27/18 10:39 03/27/18 10:39 - ECG O2 Sat by Pulse Oximetry: 94 (O2 via NC) Pulse Ox Interpretation: Abnormal Medical Decision Making Medical Decision Making: Impression: Shortness of breath Plan: * Labs * Chest x-ray * Urinalysis * US Doppler bilateral lower extremities Time: 1152 US Doppler bilateral FINDINGS: COMMON FEMORAL VEIN: Right CFV: Unremarkable. Left CFV: Unremarkable. SUPERFICIAL FEMORAL VEIN: Right SFV: Unremarkable. Left SFV: Unremarkable. POPLITEAL VEIN: Right Popliteal: Unremarkable. Left Popliteal: Unremarkable. POSTERIOR TIBIAL VEIN: Right PTV: Unremarkable. Left PTV: Unremarkable. OTHER FINDINGS: None. IMPRESSION: No evidence of deep venous thrombosis. Time: 1410 Labs reviewed, patient noted to have low Hgb compared to prior. Patient with borderline hypokalemia as well. Guiac stool test is negative. Time: [address] Bunch, patient's PMD who recommends Lasix 40mg IV and K-Dur 40meq PO. Patient to be admitted to [facility] under Dr. Bunch's service and Dr. Carr to be consulted for cardiology. Scribe Attestation: Documented by Tanisha Alexandra, acting as a scribe for Eileen Delatorre MD. Provider Scribe Attestation: All medical record entries made by the Scribe were at my direction and personally dictated by me. I have reviewed the chart and agree that the record accurately reflects my personal performance of the history, physical exam, medical decision making, and the department course for this patient. I have also personally directed, reviewed, and agree with the discharge instructions and disposition. Disposition - Disposition Disposition Time: 15:15 Forms: [employer] (Greenlandic)
[2018-03-27 11:15] LABS: BASO % 0.3 % (0.0-2.0); EOS # 0.1 K/uL (0.0-0.7); EOS % 1.7 % (0.0-4.0); HEMOGLOBIN 9.8 g/dL (12.0-16.0); LYMPH % 12.8 % (20.0-40.0); MEAN CELL VOLUME 83.3 fl (81.0-99.0); MEAN CORPUSCULAR HEMOGLOBIN 27.5 pg (27.0-31.0); MEAN CORPUSCULAR HGB CONC 33.1 g/dL (33.0-37.0); MEAN PLATELET VOLUME 8.3 fl (7.2-11.7); MONO # 0.6 K/uL (0.0-0.8); MONO % 7.9 % (0.0-10.0); NEUT # 6.2 K/uL (1.8-7.0); NEUT % 77.3 % (50.0-75.0); NRBC % 0.1 % (0.0-0.0); RBC 3.55 Mil/uL (3.80-5.20); RED CELL DISTRIBUTION WIDTH 16.1 % (11.5-14.5)
[2018-03-27 11:19] LABS: URINE BILIRUBIN NEGATIVE (NEGATIVE); URINE BLOOD NEGATIVE (NEGATIVE); URINE CLARITY SLIGHTY-CLOUDY (Clear); URINE COLOR YELLOW (YELLOW); URINE GLUCOSE (UA) NEG (Normal); URINE LEUKOCYTE ESTERASE TRACE Leu/uL (Negative); URINE PROTEIN NEGATIVE (NEGATIVE); URINE UROBILINOGEN 0.2-1.0 mg/dL (0.2-1.0)
[2018-03-27 11:20] LABS: SQUAMOUS EPITHIAL 1 /hpf (0-5)
[2018-03-27 11:25] LABS: INR 1.7; PROTHROMBIN TIME 18.5 Seconds (9.8-13.1)
[2018-03-27 11:28] LABS: PARTIAL THROMBOPLASTIN TIME 33.5 Seconds (25.6-37.1)
--- NOTE | 2018-03-27 11:37 | US ---
Date of service: 03/27/2018 PROCEDURE: Bilateral lower extremity venous duplex Doppler. HISTORY: BLE swelling COMPARISON: None available. TECHNIQUE: Bilateral common femoral, superficial femoral, popliteal and posterior tibial veins were evaluated. Flow was assessed with color Doppler, compressibility, assessment of phasic flow and augmentation response. FINDINGS: COMMON FEMORAL VEIN: Right CFV: Unremarkable. Left CFV: Unremarkable. SUPERFICIAL FEMORAL VEIN: Right SFV: Unremarkable. Left SFV: Unremarkable. POPLITEAL VEIN: Right Popliteal: Unremarkable. Left Popliteal: Unremarkable. POSTERIOR TIBIAL VEIN: Right PTV: Unremarkable. Left PTV: Unremarkable. OTHER FINDINGS: None. IMPRESSION: No evidence of deep venous thrombosis.
[2018-03-27 11:50] LABS: ALB/GLOB RATIO 1.2 (1.0-2.1); ALBUMIN 3.9 g/dL (3.5-5.0); ALT/SGPT 24 U/L (9-52); AST/SGOT 28 U/L (14-36); BLOOD UREA NITROGEN 15 mg/dl (7-17); CALCIUM 9.5 mg/dL (8.4-10.2); GFR NON-AFRICAN AMERICAN 60
[2018-03-27 12:02] LABS: B-TYPE NATRIURETIC PEPTIDE 474 pg/ml (0-900)
--- NOTE | 2018-03-27 12:51 | RAD ---
HISTORY: SOB COMPARISON: Chest x-ray performed 02/21/17 TECHNIQUE: Chest, one view. FINDINGS: LUNGS: Mild pulmonary venous congestion. No focal consolidation. Please note that chest x-ray has limited sensitivity for the detection of pulmonary masses. PLEURA: No significant pleural effusion identified. No definite pneumothorax . CARDIOVASCULAR: Cardiomegaly. Atherosclerotic calcifications an ectatic aorta. OSSEOUS STRUCTURES: No acute osseous abnormality identified. VISUALIZED UPPER ABDOMEN: Unremarkable. OTHER FINDINGS: None. IMPRESSION: Cardiomegaly. Ectatic aorta containing atherosclerotic calcifications. Mild pulmonary venous congestion.
[2018-03-27] MEDS ORDERED: Potassium Chloride 20 mEq ER Tab PO STA (15:17)
[2018-03-27] MEDS ORDERED: Potassium Chloride 20 mEq ER Tab PO ONE (15:56)
[2018-03-27] MEDS ORDERED: Multivitamin With Minerals Tab PO SCH (18:00)
--- NOTE | 2018-03-27 20:03 | CARD ---
APPROVED REPORT Date of service: 03/27/2018 EKG Measurement Heart [id number] <Conclusion> Atrial fibrillation with rapid ventricular response Nonspecific ST and T wave abnormality Abnormal ECG
[2018-03-27] MEDS: Mupirocin 2% Oint 1GM UD TOP SCH (21:33)
--- NOTE | 2018-03-28 08:24 | CP.PCM.HP ---
History of Present Illness - History of Present Illness History of Present Illness: 87yo female, presented in ER with c/o of worsening shortness of breath. She c/o the shortness of breath worsens with exertion with paroxsymal nocturnal dyspnea , orthopnea, and a dry cough. She denies any fever, chills, chest pain and new/ worsening leg swelling. No other complaints. Present on Admission - Present on Admission Any Indicators Present on Admission: No Review of Systems - Constitutional Constitutional: Weakness - EENT Eyes: As Per HPI - Cardiovascular Cardiovascular: Dyspnea, Dyspnea on Exertion, Edema, Paroxysmal Nocturnal Dyspnea, Pedal Edema - Respiratory Respiratory: Dyspnea, Dyspnea on Exertion - Gastrointestinal Gastrointestinal: As Per HPI - Genitourinary Genitourinary: As Per HPI - Musculoskeletal Musculoskeletal: Arthralgias - Integumentary Integumentary: As Per HPI - Neurological Neurological: As Per HPI - Psychiatric Psychiatric: As Per HPI Past Patient History - Infectious Disease Hx of Infectious Diseases: None - Tetanus Immunizations Tetanus Immunization: Unknown - Past Medical History & Family History Past Medical History?: Yes - Past Social History Smoking Status: Never Smoked - CARDIAC Hx Cardiac Disorders: Yes Hx Atrial Fibrillation: Yes Hx Hypercholesterolemia: Yes Hx Hypertension: Yes Hx Pacemaker: No - PULMONARY Hx Respiratory Disorders: No - NEUROLOGICAL Hx Neurological Disorder: No - HEENT Hx HEENT Problems: No - RENAL Hx Chronic Kidney Disease: Yes - ENDOCRINE/METABOLIC Hx Endocrine Disorders: No - HEMATOLOGICAL/ONCOLOGICAL Hx Blood Disorders: Yes Hx AIDS: No Hx Anemia: Yes Hx Human Immunodeficiency Virus (HIV): No - INTEGUMENTARY Hx Dermatological Problems: No - MUSCULOSKELETAL/RHEUMATOLOGICAL Hx Musculoskeletal Disorders: Yes Hx Arthritis: Yes Hx Falls: No - GASTROINTESTINAL Hx Gastrointestinal Disorders: Yes Other/Comment: "stomach infection" - GENITOURINARY/GYNECOLOGICAL Hx Genitourinary Disorders: No - PSYCHIATRIC Hx Psychophysiologic Disorder: No Hx Emotional Abuse: No Hx Physical Abuse: No Hx Substance Use: No - SURGICAL HISTORY Hx Surgeries: Yes Hx Cholecystectomy: Yes Hx Coronary Stent: Yes (x3) - ANESTHESIA Hx Anesthesia: Yes Hx Anesthesia Reactions: No Hx Malignant Hyperthermia: No Has any member of the family had a problem w/ anesthesia?: No Meds Allergies/Adverse Reactions: Allergies Allergy/AdvReac Type Severity Reaction Status Date / Time clopidogrel [From Plavix] Allergy Severe RASH/SHORTNESS Verified 09/10/18 10:03 OF BREATH Physical Exam - Constitutional Appears: Chronically Ill - Head Exam Head Exam: ATRAUMATIC, NORMAL INSPECTION, NORMOCEPHALIC - Eye Exam Eye Exam: Normal appearance - Neck Exam Neck exam: Positive for: Full Rom - Respiratory Exam Respiratory Exam: Rales - Cardiovascular Exam Cardiovascular Exam: REGULAR RHYTHM, +S1, +S2 - GI/Abdominal Exam GI & Abdominal Exam: Normal Bowel Sounds - Extremities Exam Extremities exam: Positive for: pedal edema - Neurological Exam Neurological exam: Alert, CN II-XII Intact, Normal Gait, Oriented x3 - Psychiatric Exam Psychiatric exam: Normal Mood - Skin Skin Exam: Dry Results - Vital Signs Recent Vital Signs: Last Vital Signs Temp 97.6 F 03/28/18 08:00 Pulse 87 03/28/18 08:00 Resp 18 03/28/18 08:00 BP 152/86 H 03/28/18 08:00 Pulse Ox 98 03/28/18 08:00 - Labs Result Diagrams: 03/27/18 10:39 03/27/18 10:39 Labs: Laboratory Results - last 24 hr 03/27/18 03/27/18 03/27/18 10:39 10:39 10:45 WBC 8.0 RBC 3.55 L Hgb 9.8 L D Hct 29.6 L MCV 83.3 D MCH 27.5 MCHC 33.1 RDW 16.1 H Plt Count 239 MPV 8.3 Neut % (Auto) 77.3 H Lymph % (Auto) 12.8 L [place] % (Auto) 7.9 Eos % (Auto) 1.7 Baso % (Auto) 0.3 Neut # (Auto) 6.2 Lymph # (Auto) 1.0 [place] # (Auto) 0.6 Eos # (Auto) 0.1 Baso # (Auto) 0.0 PT INR APTT D-Dimer, Quantitative Sodium 142 Potassium 3.6 Chloride 104 Carbon Dioxide 32 H Anion Gap 10 BUN 15 Creatinine 0.9 Est GFR ( Amer) > 60 Est GFR (Non-Af Amer) 60 Random Glucose 117 H Calcium 9.5 Total Bilirubin 0.5 AST 28 ALT 24 Alkaline Phosphatase 41 Troponin I < 0.0120 NT-Pro-B Natriuret Pep 474 Total Protein 7.1 Albumin 3.9 Globulin 3.2 Albumin/Globulin Ratio 1.2 Urine Color Yellow Urine Clarity Slighty-cloudy Urine pH 7.0 Ur Specific [place] 1.009 Urine Protein Negative Urine Glucose (UA) Neg Urine Ketones Negative Urine Blood Negative Urine Nitrate Negative Urine Bilirubin Negative Urine Urobilinogen 0.2-1.0 Ur Leukocyte Esterase Trace Urine RBC (Auto) 2 Urine Microscopic WBC 12 H Ur Squamous Epith Cells 1 Stool Occult Blood 03/27/18 03/27/18 11:23 13:40 WBC RBC Hgb Hct MCV MCH MCHC RDW Plt Count MPV Neut % (Auto) Lymph % (Auto) [place] % (Auto) Eos % (Auto) Baso % (Auto) Neut # (Auto) Lymph # (Auto) [place] # (Auto) Eos # (Auto) Baso # (Auto) PT 18.5 H INR 1.7 APTT 33.5 D-Dimer, Quantitative 217 Sodium Potassium Chloride Carbon Dioxide Anion Gap BUN Creatinine Est GFR ( Amer) Est GFR (Non-Af Amer) Random Glucose Calcium Total Bilirubin AST ALT Alkaline Phosphatase Troponin I NT-Pro-B Natriuret Pep Total Protein Albumin Globulin Albumin/Globulin Ratio Urine Color Urine Clarity Urine pH Ur Specific [place] Urine Protein Urine Glucose (UA) Urine Ketones Urine Blood Urine Nitrate Urine Bilirubin Urine Urobilinogen Ur Leukocyte Esterase Urine RBC (Auto) Urine Microscopic WBC Ur Squamous Epith Cells Stool Occult Blood Negative Assessment & Plan (1) CHF (congestive heart failure) Status: Acute (2) Coronary artery disease Status: Chronic (3) Hypercholesterolemia Status: Chronic (4) Hypertension Status: Chronic - Assessment and Plan (Free Text) Plan: As per orders
[2018-03-28] MEDS ORDERED: Patient's Own Med (Ubidecarenone [Coenzyme Q-10] 200 mg) PO SCH (09:00)
[2018-03-28] MEDS ORDERED: BIOTIN 10 MG PO SCH (09:00)
[2018-03-28] MEDS: Calcium-Vit D 500 mg-200 Units Tab UD PO SCH (09:25)
[2018-03-28] MEDS: Omega-3-Acid Ethyl Esters 1 GM Cap PO SCH ×2 (09:25→17:35)
[2018-03-28] MEDS: Pantoprazole 20 mg EC Tab PO SCH (09:26)
[2018-03-28] MEDS: Lactobacillus Acidophilus 500 MU Cap PO SCH (09:35)
[2018-03-28] MEDS: Ciprofloxacin 200mg/100ml D5W 100 ML IVPB SCH ×2 (10:31→21:28)
[2018-03-28] MEDS: Multivitamin With Minerals Tab PO SCH (10:32)
--- NOTE | 2018-03-28 10:49 | CP.PCM.CON ---
History of Present Illness - History of Present Illness History of Present Illness: CARDIOLOGY CONSULT NOTE FOR DR. MITZY Nuñez D.O. PGY-1 CC: SOB x 2 months HPI: Mrs. Valentine is a 87y/o F with pmhx of CAD s/p mid-RCA stent (03/2012) and cardiac cath (10/10/17), HTN, HLD, Afib on xarelto presents to [facility] with complaints of shortness of breath & palpitations that she has been experiencing for the past 2 months. She had decided to go to ER after she was having difficulty sleeping due to SOB and palpitations. She reports having these symptoms for several months and has been ignoring it. This am, she reports improvement in her symptoms, and was able to sleep overnight. She denies chest pain, palpitations, shortness of breath, headache, nausea, vomiting, diophoresis , constipation, diarrhea. PMH: CAD, HTN, HLD, Afib All: Plavix- diffuse rash PSH: Denies SH: Hx of 3 pack/day cigarette use x <1 year Meds: See SEP PMD: Dr. Bunch Cardio: Dr. Carr Echo 03/27/18: Cardiac Cath 10/10/17: fractional flow reserve of LAD waws 50% to 55%, proximal left anterior descending artery fractional flow reserve was done, which was physiologically nonsignificant 0.82. Mild nonobstructive coronary artery disease , normal left ventricular ejection fraction, mildly elevated end-diastolic pressure. Review of Systems - Review of Systems Review of Systems: as per HPI Past Patient History - Infectious Disease Hx of Infectious Diseases: None - Tetanus Immunizations Tetanus Immunization: Unknown - Past Medical History & Family History Past Medical History?: Yes - Past Social History Smoking Status: Never Smoked - CARDIAC Hx Cardiac Disorders: Yes Hx Atrial Fibrillation: Yes Hx Hypercholesterolemia: Yes Hx Hypertension: Yes Hx Pacemaker: No - PULMONARY Hx Respiratory Disorders: No - NEUROLOGICAL Hx Neurological Disorder: No - HEENT Hx HEENT Problems: No - RENAL Hx Chronic Kidney Disease: Yes - ENDOCRINE/METABOLIC Hx Endocrine Disorders: No - HEMATOLOGICAL/ONCOLOGICAL Hx Blood Disorders: Yes Hx AIDS: No Hx Anemia: Yes Hx Human Immunodeficiency Virus (HIV): No - INTEGUMENTARY Hx Dermatological Problems: No - MUSCULOSKELETAL/RHEUMATOLOGICAL Hx Musculoskeletal Disorders: Yes Hx Arthritis: Yes Hx Falls: No - GASTROINTESTINAL Hx Gastrointestinal Disorders: Yes Other/Comment: "stomach infection" - GENITOURINARY/GYNECOLOGICAL Hx Genitourinary Disorders: No - PSYCHIATRIC Hx Psychophysiologic Disorder: No Hx Emotional Abuse: No Hx Physical Abuse: No Hx Substance Use: No - SURGICAL HISTORY Hx Surgeries: Yes Hx Cholecystectomy: Yes Hx Coronary Stent: Yes (x3) - ANESTHESIA Hx Anesthesia: Yes Hx Anesthesia Reactions: No Hx Malignant Hyperthermia: No Has any member of the family had a problem w/ anesthesia?: No Meds Allergies/Adverse Reactions: Allergies Allergy/AdvReac Type Severity Reaction Status Date / Time clopidogrel [From Plavix] Allergy Severe RASH/SHORTNESS Verified 03/27/18 10:03 OF BREATH - Medications Medications: Current Medications Acetaminophen (Tylenol 325mg Tab) 650 mg PO Q4 PRN PRN Reason: Pain, moderate (4-7) Aspirin (Ecotrin) 81 mg PO DAILY [facility] Last Admin: 03/28/18 09:23 Dose: 81 mg Calcium/Vitamin D (Oyster Shell Calcium/Vitamin D 500 Mg-200 Iu) 1 tab PO DAILY [facility] Last Admin: 03/28/18 09:25 Dose: 1 tab Carvedilol (Coreg) 12.5 mg PO BID [facility] Last Admin: 03/28/18 09:21 Dose: 12.5 mg Furosemide (Lasix) 40 mg IV Q12 [facility] Last Admin: 03/28/18 09:34 Dose: 40 mg Home Med (Biotin [Meribin]) 10 mg PO DAILY [facility] Home Med (Ubidecarenone [Coenzyme Q-10]) 200 mg PO DAILY [facility] Ciprofloxacin (Cipro 200mg/100ml D5w) 100 mls @ 100 mls/hr IVPB Q12 [facility] PRN Reason: Protocol Last Admin: 03/28/18 10:31 Dose: 100 mls/hr Lactobacillus Acidophilus (Bacid Acidophilus) 1 cap PO DAILY [facility] Last Admin: 03/28/18 09:35 Dose: 1 cap Losartan Potassium (Cozaar) 50 mg PO DAILY [facility] Last Admin: 03/28/18 09:22 Dose: 50 mg Multivitamins/Minerals (Therapeutic-M Tab) 1 tab PO DAILY [facility] Last Admin: 03/28/18 10:32 Dose: Not Given Mupirocin (Bactroban Ointment) 1 applic TOP BID [facility] Last Admin: 03/28/18 09:42 Dose: 1 applic [id number] Ethyl Esters (Lovaza) 2 gm PO BID [facility] Last Admin: 03/28/18 09:25 Dose: 2 gm Pantoprazole Sodium (Protonix Ec Tab) 20 mg PO DAILY [facility] Last Admin: 03/28/18 09:26 Dose: 20 mg Rivaroxaban (Xarelto) 15 mg PO HS [facility] PRN Reason: Protocol Last Admin: 03/27/18 21:23 Dose: 15 mg Sucralfate (Carafate Tab) 1 gm PO TIDAC [facility] Last Admin: 03/28/18 09:21 Dose: 1 gm Physical Exam - Constitutional Appears: Well, Non-toxic, No Acute Distress - Head Exam Head Exam: ATRAUMATIC, NORMAL INSPECTION - Eye Exam Eye Exam: EOMI, Normal appearance - ENT Exam ENT Exam: Mucous Membranes Moist, Normal Exam - Neck Exam Neck exam: Positive for: Normal Inspection - Respiratory Exam Respiratory Exam: Clear to Auscultation Bilateral, NORMAL BREATHING PATTERN - Cardiovascular Exam Cardiovascular Exam: Irregular Rhythm, +S1, +S2 - GI/Abdominal Exam GI & Abdominal Exam: Normal Bowel Sounds, Soft - Extremities Exam Extremities exam: Positive for: normal capillary refill, normal inspection, pedal edema - Back Exam Back exam: NORMAL INSPECTION - Neurological Exam Neurological exam: Alert, CN II-XII Intact, Oriented x3 - Psychiatric Exam Psychiatric exam: Normal Affect, Normal Mood - Skin Skin Exam: Dry, Intact, Warm Results - Vital Signs Recent Vital Signs: Last Vital Signs Temp 97.6 F 03/28/18 08:00 Pulse 61 03/28/18 09:22 Resp 18 03/28/18 08:00 BP 152/86 H 03/28/18 09:34 Pulse Ox 98 03/28/18 08:00 - Labs Result Diagrams: 03/28/18 12:00 03/28/18 12:00 Labs: Laboratory Results - last 24 hr 03/27/18 03/27/18 03/27/18 10:39 10:39 10:45 WBC 8.0 RBC 3.55 L Hgb 9.8 L D Hct 29.6 L MCV 83.3 D MCH 27.5 MCHC 33.1 RDW 16.1 H Plt Count 239 MPV 8.3 Neut % (Auto) 77.3 H Lymph % (Auto) 12.8 L White % (Auto) 7.9 Eos % (Auto) 1.7 Baso % (Auto) 0.3 Neut # (Auto) 6.2 Lymph # (Auto) 1.0 White # (Auto) 0.6 Eos # (Auto) 0.1 Baso # (Auto) 0.0 PT INR APTT D-Dimer, Quantitative Sodium 142 Potassium 3.6 Chloride 104 Carbon Dioxide 32 H Anion Gap 10 BUN 15 Creatinine 0.9 Est GFR ( Amer) > 60 Est GFR (Non-Af Amer) 60 Random Glucose 117 H Calcium 9.5 Total Bilirubin 0.5 AST 28 ALT 24 Alkaline Phosphatase 41 Troponin I < 0.0120 NT-Pro-B Natriuret Pep 474 Total Protein 7.1 Albumin 3.9 Globulin 3.2 Albumin/Globulin Ratio 1.2 Urine Color Yellow Urine Clarity Slighty-cloudy Urine pH 7.0 Ur Specific [place] 1.009 Urine Protein Negative Urine Glucose (UA) Neg Urine Ketones Negative Urine Blood Negative Urine Nitrate Negative Urine Bilirubin Negative Urine Urobilinogen 0.2-1.0 Ur Leukocyte Esterase Trace Urine RBC (Auto) 2 Urine Microscopic WBC 12 H Ur Squamous Epith Cells 1 Stool Occult Blood 03/27/18 03/27/18 11:23 13:40 WBC RBC Hgb Hct MCV MCH MCHC RDW Plt Count MPV Neut % (Auto) Lymph % (Auto) White % (Auto) Eos % (Auto) Baso % (Auto) Neut # (Auto) Lymph # (Auto) White # (Auto) Eos # (Auto) Baso # (Auto) PT 18.5 H INR 1.7 APTT 33.5 D-Dimer, Quantitative 217 Sodium Potassium Chloride Carbon Dioxide Anion Gap BUN Creatinine Est GFR ( Amer) Est GFR (Non-Af Amer) Random Glucose Calcium Total Bilirubin AST ALT Alkaline Phosphatase Troponin I NT-Pro-B Natriuret Pep Total Protein Albumin Globulin Albumin/Globulin Ratio Urine Color Urine Clarity Urine pH Ur Specific [place] Urine Protein Urine Glucose (UA) Urine Ketones Urine Blood Urine Nitrate Urine Bilirubin Urine Urobilinogen Ur Leukocyte Esterase Urine RBC (Auto) Urine Microscopic WBC Ur Squamous Epith Cells Stool Occult Blood Negative Assessment & Plan - Assessment and Plan (Free Text) Assessment: Mrs. Valentine is a 87y/o F with pmhx of CAD s/p mid-RCA stent (03/2012) and cardiac cath (10/10/17), HTN, HLD, Afib on xarelto admitted for acute on chronic CHF exacerbation Plan: Acute on chronic CHF exacerbation BNP improved from 1110 --> 474 Continue home lasix F/u Echo CAD s/p mid RCA stent HLD Continue aspirin START STATIN? Afib Continue home xarelto HTN continue home losartan continue home carvedilol Case seen, examined and discussed with attending physician, Dr. Carr. Further recs per him.
[2018-03-28] MEDS: Mupirocin 2% Oint 1GM UD TOP SCH (11:48)
[2018-03-28 12:18] LABS: BASO % 0.6 % (0.0-2.0); EOS # 0.2 K/uL (0.0-0.7); EOS % 2.2 % (0.0-4.0); LYMPH # 1.1 K/uL (1.0-4.3); LYMPH % 14.5 % (20.0-40.0); MEAN CELL VOLUME 82.8 fl (81.0-99.0); MEAN CORPUSCULAR HEMOGLOBIN 26.9 pg (27.0-31.0); MEAN CORPUSCULAR HGB CONC 32.5 g/dL (33.0-37.0); MEAN PLATELET VOLUME 7.8 fl (7.2-11.7); MONO # 0.6 K/uL (0.0-0.8); MONO % 8.7 % (0.0-10.0); NEUT # 5.4 K/uL (1.8-7.0); NRBC % 0.2 % (0.0-0.0); RBC 3.71 Mil/uL (3.80-5.20); RED CELL DISTRIBUTION WIDTH 16.5 % (11.5-14.5); WHITE BLOOD COUNT 7.3 K/uL (4.8-10.8)
[2018-03-28 12:31] LABS: BLOOD UREA NITROGEN 15 mg/dl (7-17); CALCIUM 9.3 mg/dL (8.4-10.2); GFR NON-AFRICAN AMERICAN > 60
[2018-03-28] MEDS ORDERED: Potassium Chloride 20 mEq ER Tab PO ONE ×2 (14:44→15:51)
--- NOTE | 2018-03-28 15:55 | CP.PCM.PN ---
Subjective - Date & Time of Evaluation Date of Evaluation: 03/28/18 Time of Evaluation: 16:30 - Subjective Subjective: Still same sob no cp Objective - Vital Signs/Intake and Output Vital Signs (last 24 hours): Temp Pulse Resp BP Pulse Ox 98.3 F 90 20 111/66 98 03/28/18 12:00 03/28/18 12:00 03/28/18 12:00 03/28/18 12:00 03/28/18 12:00 - Medications Medications: Current Medications Acetaminophen (Tylenol 325mg Tab) 650 mg PO Q4 PRN PRN Reason: Pain, moderate (4-7) Aspirin (Ecotrin) 81 mg PO DAILY [facility] Last Admin: 03/28/18 09:23 Dose: 81 mg Calcium/Vitamin D (Oyster Shell Calcium/Vitamin D 500 Mg-200 Iu) 1 tab PO DAILY [facility] Last Admin: 03/28/18 09:25 Dose: 1 tab Carvedilol (Coreg) 12.5 mg PO BID [facility] Last Admin: 03/28/18 09:21 Dose: 12.5 mg Furosemide (Lasix) 40 mg IV Q12 [facility] Last Admin: 03/28/18 09:34 Dose: 40 mg Ciprofloxacin (Cipro 200mg/100ml D5w) 100 mls @ 100 mls/hr IVPB Q12 [facility] PRN Reason: Protocol Last Admin: 03/28/18 10:31 Dose: 100 mls/hr Lactobacillus Acidophilus (Bacid Acidophilus) 1 cap PO DAILY [facility] Last Admin: 03/28/18 09:35 Dose: 1 cap Losartan Potassium (Cozaar) 50 mg PO DAILY [facility] Last Admin: 03/28/18 09:22 Dose: 50 mg Multivitamins/Minerals (Therapeutic-M Tab) 1 tab PO DAILY [facility] Last Admin: 03/28/18 10:32 Dose: Not Given Mupirocin (Bactroban Ointment) 1 applic TOP BID [facility] Last Admin: 03/28/18 09:42 Dose: 1 applic [id number] Ethyl Esters (Lovaza) 2 gm PO BID [facility] Last Admin: 03/28/18 09:25 Dose: 2 gm Pantoprazole Sodium (Protonix Ec Tab) 20 mg PO DAILY [facility] Last Admin: 03/28/18 09:26 Dose: 20 mg Potassium Chloride (Klor-Con 10) 40 meq PO ONCE ONE Stop: 03/28/18 15:52 Rivaroxaban (Xarelto) 15 mg PO HS [facility] PRN Reason: Protocol Last Admin: 03/27/18 21:23 Dose: 15 mg Sucralfate (Carafate Tab) 1 gm PO TIDAC [facility] Last Admin: 03/28/18 13:44 Dose: 1 gm - Labs Labs: 03/28/18 12:00 03/28/18 12:00 PT 18.5 Seconds (9.8-13.1) H 03/27/18 11:23 INR 1.7 03/27/18 11:23 APTT 33.5 Seconds (25.6-37.1) 03/27/18 11:23 - Constitutional Appears: Chronically Ill - Head Exam Head Exam: ATRAUMATIC, NORMAL INSPECTION, NORMOCEPHALIC - ENT Exam ENT Exam: Mucous Membranes Moist - Neck Exam Neck Exam: Full ROM - Respiratory Exam Respiratory Exam: Decreased Breath Sounds - Cardiovascular Exam Cardiovascular Exam: Irregular Rhythm, +S1, +S2 - GI/Abdominal Exam GI & Abdominal Exam: Soft, Normal Bowel Sounds - Extremities Exam Extremities Exam: Pedal Edema - Neurological Exam Neurological Exam: Alert, Awake, CN II-XII Intact, Oriented x3 - Psychiatric Exam Psychiatric exam: Normal Affect - Skin Skin Exam: Normal Color Assessment and Plan (1) CHF (congestive heart failure) Status: Acute (2) Coronary artery disease Status: Chronic (3) Hypercholesterolemia Status: Chronic (4) Hypertension Status: Chronic
--- NOTE | 2018-03-28 16:20 | CARD ---
APPROVED REPORT Date of service: 03/28/2018 EXAM: Two-dimensional and M-mode echocardiogram with Doppler and color Doppler. Other Information Quality : AverageRhythm : NSR Technically limited study due to body habitus. INDICATION Congestive Heart Failure 2D DIMENSIONS IVSd1.18 (0.7-1.1cm)LVDd3.94 (3.9-5.9cm) LVOT Diameter2.02 (1.8-2.4cm)PWd1.41 (0.7-1.1cm) IVSs1.19 (0.8-1.2cm)LVDs2.41 (2.5-4.0cm) FS (%) 38.9 %PWs1.32 (0.8-1.2cm) M-Mode DIMENSIONS Left Atrium (MM)5.59 (2.5-4.0cm)IVSd1.32 (0.7-1.1cm) Aortic Root2.85 (2.2-3.7cm)LVDd4.70 (4.0-5.6cm) Aortic Cusp Exc.1.65 (1.5-2.0cm)PWd1.29 (0.7-1.1cm) IVSs1.65 cmFS (%) 36 % LVDs3.01 (2.0-3.8cm)PWs1.56 cm Aortic Valve AoV Peak Niedlfru532.3cm/sAoV VTI25.7cmAO Peak GR.7mmHg LVOT Peak Kezdtiuf27.4cm/sLVOT VTI17.40cmAO Mean GR.5mmHg Mitral Valve MV E Maxjfdzk60.8cm/sMV DECEL HHKW123hpHD A Rivsjvhm44.4cm/s MV VKX02tqW/A ratio3.6MVA (PHT)4.43cm2 TDI Lateral E' Peak V10.19cm/sMedial E' Peak V11.81cm/sE/Lateral E'8.2 E/Medial E'7.1 Pulmonary Valve PV Peak Ssrkjsqw51.3cm/s LEFT VENTRICLE The left ventricle is normal size. There is mild concentric left ventricular hypertrophy. The left ventricular systolic function is normal. The estimated ejection fraction is 60-65% No regional wall motion abnormalities noted.. The left ventricular diastolic function are unable to be accurately assessed No left ventricle thrombus noted on this study. There is no ventricular septal defect visualized. There is no mass noted in the left ventricle. RIGHT VENTRICLE The right ventricle is normal size. There is normal right ventricular wall thickness. The right ventricular systolic function is normal. ATRIA The left atrium size is moderately dilated The right atrium size is normal. The interatrial septum is intact with no evidence for an atrial septal defect. AORTIC VALVE The aortic valve is normal in structure. No aortic regurgitation is present. There is no aortic valvular stenosis. MITRAL VALVE The mitral valve is normal in structure. There is no mitral valve stenosis. There is trivial mitral valve regurgitation noted. TRICUSPID VALVE The tricuspid valve is normal in structure. There is no tricuspid valve regurgitation noted. PULMONIC VALVE The pulmonary valve is normal in structure. There is no pulmonic valvular regurgitation. GREAT VESSELS The aortic root is normal in size. The ascending aorta is normal in size. The pulmonary artery is normal. The IVC is normal in size and collapses >50% with inspiration. PERICARDIAL EFFUSION There is no pericardial effusion. <Conclusion> Dilated left atrium Mild LVH Normal LV systolic function The estimated ejection fraction is 60-65%
[2018-03-29 06:18] LABS: BLOOD UREA NITROGEN 17 mg/dl (7-17); GFR NON-AFRICAN AMERICAN 53
[2018-03-29] MEDS: Omega-3-Acid Ethyl Esters 1 GM Cap PO SCH (08:35)
[2018-03-29] MEDS: Calcium-Vit D 500 mg-200 Units Tab UD PO SCH (08:35)
[2018-03-29] MEDS: Multivitamin With Minerals Tab PO SCH (08:36)
[2018-03-29] MEDS: Pantoprazole 20 mg EC Tab PO SCH (08:36)
[2018-03-29] MEDS: Lactobacillus Acidophilus 500 MU Cap PO SCH (08:41)
[2018-03-29] MEDS: Ciprofloxacin 200mg/100ml D5W 100 ML IVPB SCH (08:42)
[2018-03-29 12:05] VITALS: BP 135/78; PULSE 87; RESP 20; TEMP 97.9; O2SAT 98
--- NOTE | 2018-03-29 12:37 | CP.PCM.PN ---
Subjective - Date & Time of Evaluation Date of Evaluation: 03/29/18 Time of Evaluation: 20:03 - Subjective Subjective: Patient comfortable CHF compensated with dieresis. Will DC home and f/u with cardiology neela. Objective - Vital Signs/Intake and Output Vital Signs (last 24 hours): Temp Pulse Resp BP Pulse Ox 97.9 F 87 20 135/78 98 03/29/18 12:00 03/29/18 12:00 03/29/18 12:00 03/29/18 12:00 03/29/18 12:00 - Medications Medications: Current Medications Acetaminophen (Tylenol 325mg Tab) 650 mg PO Q4 PRN PRN Reason: Pain, moderate (4-7) Aspirin (Ecotrin) 81 mg PO DAILY [facility] Last Admin: 03/29/18 08:35 Dose: 81 mg Calcium/Vitamin D (Oyster Shell Calcium/Vitamin D 500 Mg-200 Iu) 1 tab PO DAILY [facility] Last Admin: 03/29/18 08:35 Dose: 1 tab Carvedilol (Coreg) 12.5 mg PO BID [facility] Last Admin: 03/29/18 08:37 Dose: 12.5 mg Furosemide (Lasix) 40 mg IV Q12 [facility] Last Admin: 03/29/18 08:37 Dose: 40 mg Ciprofloxacin (Cipro 200mg/100ml D5w) 100 mls @ 100 mls/hr IVPB Q12 [facility] PRN Reason: Protocol Last Admin: 03/29/18 08:42 Dose: 100 mls/hr Lactobacillus Acidophilus (Bacid Acidophilus) 1 cap PO DAILY [facility] Last Admin: 03/29/18 08:41 Dose: 1 cap Losartan Potassium (Cozaar) 50 mg PO DAILY [facility] Last Admin: 03/29/18 08:37 Dose: 50 mg Multivitamins/Minerals (Therapeutic-M Tab) 1 tab PO DAILY [facility] Last Admin: 03/29/18 08:36 Dose: 1 tab Mupirocin (Bactroban Ointment) 1 applic TOP BID [facility] Last Admin: 03/29/18 08:35 Dose: 1 applic [id number] Ethyl Esters (Lovaza) 2 gm PO BID [facility] Last Admin: 03/29/18 08:35 Dose: 2 gm Pantoprazole Sodium (Protonix Ec Tab) 20 mg PO DAILY [facility] Last Admin: 03/29/18 08:36 Dose: 20 mg Rivaroxaban (Xarelto) 15 mg PO HS [facility] PRN Reason: Protocol Last Admin: 03/28/18 21:27 Dose: 15 mg Sucralfate (Carafate Tab) 1 gm PO TIDAC [facility] Last Admin: 03/29/18 11:51 Dose: 1 gm - Labs Labs: 03/28/18 12:00 03/29/18 05:20 PT 18.5 Seconds (9.8-13.1) H 03/27/18 11:23 INR 1.7 03/27/18 11:23 APTT 33.5 Seconds (25.6-37.1) 03/27/18 11:23 - Constitutional Appears: Non-toxic - Head Exam Head Exam: ATRAUMATIC, NORMAL INSPECTION, NORMOCEPHALIC - Eye Exam Eye Exam: Normal appearance - ENT Exam ENT Exam: Mucous Membranes Moist - Neck Exam Neck Exam: Full ROM - Respiratory Exam Respiratory Exam: Clear to Ausculation Bilateral - Cardiovascular Exam Cardiovascular Exam: Irregular Rhythm, +S1, +S2 - GI/Abdominal Exam GI & Abdominal Exam: Soft, Normal Bowel Sounds - Extremities Exam Extremities Exam: Normal Inspection - Neurological Exam Neurological Exam: Alert, Awake, CN II-XII Intact, Normal Gait, Oriented x3 - Psychiatric Exam Psychiatric exam: Normal Affect - Skin Skin Exam: Normal Color Assessment and Plan (1) CHF (congestive heart failure) Status: Acute (2) Coronary artery disease Status: Chronic (3) Hypercholesterolemia Status: Chronic (4) Hypertension Status: Chronic - Assessment and Plan (Free Text) Plan: DC home f/u in my office in 1 week f/u with cardiology neela.
== END 2018-03-29 14:34 | disposition home or self-care (01) ==
LOC: H.ER 09:37 → H.ERHOLD 15:18 → H.TEL 16:36
PROVIDERS: ADMIT Internal Medicine; ATTEND Internal Medicine
DX: I13.0 Hypertensive heart and chronic kidney disease with heart failure and stage 1 through stage 4 chronic kidney disease, or unspecified chronic kidney disease (principal); I50.9 Heart failure, unspecified; N18.9 Chronic kidney disease, unspecified; E78.00 Pure hypercholesterolemia, unspecified; E78.5 Hyperlipidemia, unspecified; I48.91 Unspecified atrial fibrillation; M19.90 Unspecified osteoarthritis, unspecified site; I25.10 Atherosclerotic heart disease of native coronary artery without angina pectoris; Z95.5 Presence of coronary angioplasty implant and graft; F17.210 Nicotine dependence, cigarettes, uncomplicated; Z79.01 Long term (current) use of anticoagulants
CPT/HCPCS: 36415; 71045; 80048; 80053; 81003; 83036; 83880; 84443; 84484; 85025; 85378; 85610; 85730; 87040; 87086; 93005; 93306; 93970; 96374; 97110; 97116; 97162; 99285; G0328; G0378; G8978; G8979; J0744; J1940